=== PATIENT | female | born 1990 | race Caucasian/White ===

== ENCOUNTER 2018-11-04 02:38 | Emergency (ER) | payer SELFPAY, MEDICAID ==
[2018-11-04] MEDS: ACETAMINOPHEN 325 MG TAB PO (03:10)
== END 2018-11-04 04:19 | disposition home or self-care (01) ==
LOC: FTE 02:38
DX: J02.9 Acute pharyngitis, unspecified (principal); J04.0 Acute laryngitis
CPT/HCPCS: 99283